=== PATIENT | female | born 1995 | race Caucasian/White ===

== ENCOUNTER 2018-12-29 23:02 | Emergency (ER) | payer OTHER ==
[2018-12-30 01:07] LABS: ABSOLUTE EOSINOPHILS # (AUTO) 0.1 10^3/uL (0.0-0.6); ABSOLUTE LYMPHOCYTES (AUTO) 2.1 10^3/uL (0.5-4.7); ABSOLUTE MONOCYTES (AUTO) 0.5 10^3/uL (0.1-1.4); ABSOLUTE NEUT (AUTO) 3.9 10^3/uL (1.7-8.2); BASOPHILS % (AUTO) 0.7 % (0-2); EOSINOPHILS % (AUTO) 1.3 % (0-6); HEMATOCRIT 41.1 % (36.0-47.0); HEMOGLOBIN 13.9 g/dL (12.0-15.5); LYMPHOCYTES % (AUTO) 31.4 % (13-45); MEAN CORPUSCULAR HEMOGLOBIN 30.3 pg (27.0-33.4); MEAN CORPUSCULAR HGB CONC 33.7 g/dL (32.0-36.0); MEAN CORPUSCULAR VOLUME 90 fl (80-97); MONOCYTES % (AUTO) 7.9 % (3-13); PLATELET COUNT 327 10^3/uL (150-450); RED BLOOD COUNT 4.57 10^6/uL (3.72-5.28); RED CELL DISTRIBUTION WIDTH 12.6 % (11.5-14.0); SEGMENTED NEUTROPHILS % (AUTO) 58.7 % (42-78); TOTAL CELLS COUNTED % (AUTO) 100 %; WHITE BLOOD COUNT 6.6 10^3/uL (4.0-10.5)
[2018-12-30 01:17] LABS: APPEARANCE,URINE CLEAR; BILIRUBIN,URINE NEGATIVE (NEGATIVE); COLOR,URINE YELLOW; GLUCOSE, URINE NEGATIVE (NEGATIVE); KETONES,URINE NEGATIVE (NEGATIVE); LEUKOCYTE ESTERASE,URINE TRACE (NEGATIVE); NITRITE,URINE NEGATIVE (NEGATIVE); PROTEIN,URINE NEGATIVE (NEGATIVE); URINE SPECIFIC GRAVITY 1.012; UROBILINOGEN,URINE NEGATIVE mg/dL (<2.0)
[2018-12-30 01:26] LABS: ALANINE AMINOTRANSFERASE 22 U/L (9-52); ALBUMIN 4.7 g/dL (3.5-5.0); ALKALINE PHOSPHATASE 36 U/L (38-126); ANION GAP 10 (5-19); ASPARTATE AMINO TRANSFERASE 16 U/L (14-36); BILIRUBIN,DIRECT 0.2 mg/dL (0.0-0.4); BILIRUBIN,TOTAL 0.6 mg/dL (0.2-1.3); BLOOD UREA NITROGEN 11 mg/dL (7-20); CALCIUM 9.8 mg/dL (8.4-10.2); CARBON DIOXIDE 26 mmol/L (22-30); CHLORIDE 106 mmol/L (98-107); GLUCOSE 103 mg/dL (75-110); POTASSIUM 4.2 mmol/L (3.6-5.0); TOTAL PROTEIN 7.7 g/dL (6.3-8.2)
[2018-12-30] MEDS ORDERED: FAMOTIDINE 20 MG TABLET PO ONE (01:38)
[2018-12-30] MEDS ORDERED: METOCLOPRAMIDE HCL ORAL SOLN 10 MG/10 ML UDCUP PO ONE (01:39)
[2018-12-30] MEDS ORDERED: LIDOCAINE 2% VISCOUS SOLN 20 ML UDCUP PO ONE (01:39)
[2018-12-30] MEDS ORDERED: SUCRALFATE 1 GM TABLET PO ONE (01:39)
[2018-12-30] MEDS ORDERED: MAG HYDROX/AL HYDROX/SIMETH SUSP 30 ML UDCUP PO ONE (01:39)
--- NOTE | 2018-12-30 01:42 | ER Document Report ---
HPI - HPI Time Seen by Provider: 12/30/18 01:33 Pain Level: 4 Notes: Patient is an otherwise healthy 23-year-old female presented to the emergency department with chief complaint of sharp stabbing upper abdominal pain. Patient reports pain started on Sunday after drinking alcohol. She reports she was seen at her [facility] and they diagnosed her with reflux and started on Prilosec. She reports this does not help her symptoms. She denies any nausea, vomiting, diarrhea or fevers. She reports that the pain is sharp and stabbing and persistent. - REPRODUCTIVE LMP: 12/03/18 Reproductive: DENIES: : Past Medical History - General Information source: Patient - Social History Smoking Status: Never Smoker Frequency of alcohol use: None Drug Abuse: None Family History: Reviewed & Not Pertinent - Medical History Medical History: Negative Surgical Hx: Negative - Immunizations Immunizations up to date: Yes Vertical Provider Document - CONSTITUTIONAL Notes: PHYSICAL EXAMINATION: GENERAL: Well-appearing, well-nourished and in no acute distress. HEAD: Atraumatic, normocephalic. EYES: Pupils equal round and reactive to light, extraocular movements intact, conjunctiva are normal. ENT: Nares patent, oropharynx clear without exudates. Moist mucous membranes. NECK: Normal range of motion, supple without lymphadenopathy LUNGS: Breath sounds clear to auscultation bilaterally and equal. No wheezes rales or rhonchi. HEART: Regular rate and rhythm without murmurs ABDOMEN: Soft, nontender, nondistended abdomen. No guarding, no rebound. No masses appreciated. Female : deferred Musculoskeletal: Normal range of motion, no pitting or edema. No cyanosis. NEUROLOGICAL: Cranial nerves grossly intact. Normal speech, normal gait. Normal sensory, motor exams PSYCH: Normal mood, normal affect. SKIN: Warm, Dry, normal turgor, no rashes or lesions noted. Course - Re-evaluation Re-evalutation: Patient appears well, nontoxic is alert, oriented and interactive. Vital signs are within normal limits. Physical examination is unremarkable. Labs are unremarkable. Likely gastritis due to the fact that the pain started immediately after drinking alcohol. Patient will be started on medications for gastritis with close follow-up with her primary care provider. Patient is agreeable to this plan. - Vital Signs Vital signs: Temp Pulse Resp BP Pulse Ox 98.1 F 96 18 136/87 H 99 07/28/19 23:10 12/29/18 23:10 12/29/18 23:10 12/29/18 23:10 12/29/18 23:10 - Laboratory Result Diagrams: 12/30/18 00:50 12/30/18 00:50 Laboratory results interpreted by me: 12/30/18 12/30/18 00:50 00:50 Alkaline Phosphatase 36 L Ur Leukocyte Esterase TRACE H Discharge - Discharge Clinical Impression: Gastritis Qualifiers: Gastritis type: unspecified gastritis Chronicity: acute Gastritis bleeding: without bleeding Qualified Code(s): K29.00 - Acute gastritis without bleeding Condition: Stable Disposition: HOME, SELF-CARE Additional Instructions: Your symptoms appear to be most consistent with stomach or upper intestinal irritation. Please begin taking famotidine 40 mg in the morning and 40 mg at night. This medicine can be purchased directly [id number]. You may also take medicine such as Pepto-Bismol or Tums to assist with your pain. Please return to emergency department immediately if you have worsening of your pain, shortness of breath, vomiting, become unable to exert yourself due to pain or difficulty breathing, you pass out, or have any pain that radiates into your arms, jaw, or back. Please also return if you have any additional symptoms that are concerning to you. The most important thing is lifestyle changes. You need to avoid smoking, sodas, tea, coffee, alcohol, spicy foods, and acidic foods such as citrus fruits, tomato based products, berries, and most fruit juices. Prescriptions: RX: Famotidine 40 mg PO BID #60 tablet Sucralfate [Carafate 1 gm Tablet] 1 gm PO ACHS #60 tablet Forms: Return to Work
[2018-12-30 02:04] VITALS: BP 145/92
== END 2018-12-30 02:03 | disposition home or self-care (01) ==
LOC: ER 23:02
DX: K29.00 Acute gastritis without bleeding (principal); R10.10 Upper abdominal pain, unspecified
CPT/HCPCS: 99284; 36415; 83690; 85025; 81025; 80053; 81001; J3490

== ENCOUNTER 2018-12-30 11:23 | Emergency (ER) | payer OTHER ==
[2018-12-30] MEDS ORDERED: MAG HYDROX/AL HYDROX/SIMETH SUSP 30 ML UDCUP PO ONE (11:39)
[2018-12-30] MEDS ORDERED: LIDOCAINE 2% VISCOUS SOLN 20 ML UDCUP PO ONE (11:39)
[2018-12-30] MEDS ORDERED: METOCLOPRAMIDE HCL ORAL SOLN 10 MG/10 ML UDCUP PO ONE (11:39)
--- NOTE | 2018-12-30 11:42 | ER Document Report ---
ED Medical Screen (RME) - General Chief Complaint: Upper Abdominal Pain Stated Complaint: STOMACH PAIN Time Seen by Provider: 12/30/18 11:39 TRAVEL OUTSIDE OF THE [place] IN LAST 30 DAYS: No - HPI Notes: 12/30/18 11:40 Patient is a 23-year-old female with no significant past medical history aside from exercise-induced asthma who presents complaining of severe epigastric abdominal pain that does not radiate. Patient states that the symptoms began about a week ago after consuming alcohol. Patient states that the symptoms became severe last night and she did have an evaluation here in the emergency department at that time. Patient states that the GI cocktail she was given yesterday did help with her symptoms, but only temporary. Patient states that she has not been able to eat or drink anything and feels dehydrated. Patient states that she does feel her heart racing. She has also had watery diarrhea. Denies drug allergies. Denies CISNEROS, fever, neck pain, URI, CP, SOB, dysuria, back pain, or rash. Pt had labs reviewed from yesterday. Neg . Will not repeat hcg at this time. I have treated and performed a rapid initial assessment of this patient. A comprehensive ED assessment and evaluation of the patient, analysis of test results and completion of medical decision making process will be conducted by additional ED providers. PHYSICAL EXAMINATION: GENERAL: Well-appearing, well-nourished and in no acute distress. A&Ox4. Answers questions appropriately. LUNGS: Breath sounds clear to auscultation bilaterally and equal. No wheezes rales or rhonchi. HEART: Regular rate and rhythm without murmurs, rubs, gallops. ABDOMEN: Soft, nondistended abdomen. No guarding, no rebound. Normal bowel sounds present. No CVA tenderness bilaterally. + epigastric tenderness (cannot elicit thorough abd exam w/o bed, however). - Related Data Allergies/Adverse Reactions: No Known Allergies Allergy (Verified 12/30/18 11:29) Past Medical History Renal/ Medical History: Denies: Hx Peritoneal Dialysis - Immunizations Immunizations up to date: Yes Physical Exam - Vital signs Vitals: Temp Pulse Resp BP Pulse Ox 97.7 F 127 H 18 149/92 H 100 12/30/18 11:30 12/30/18 11:30 12/30/18 11:30 12/30/18 11:30 12/30/18 11:30 Course - Vital Signs Vital signs: Temp Pulse Resp BP Pulse Ox 97.7 F 127 H 18 149/92 H 100 12/30/18 11:30 12/30/18 11:30 12/30/18 11:30 12/30/18 11:30 12/30/18 11:30
[2018-12-30] MEDS: NORMAL SALINE 1000 ML 1,000 ML IV PRN ×2 (11:58→14:03)
[2018-12-30 12:17] LABS: ABSOLUTE MONOCYTES (AUTO) 0.5 10^3/uL (0.1-1.4); ABSOLUTE NEUT (AUTO) 7.2 10^3/uL (1.7-8.2); BASOPHILS % (AUTO) 0.4 % (0-2); HEMATOCRIT 42.1 % (36.0-47.0); HEMOGLOBIN 14.6 g/dL (12.0-15.5); LYMPHOCYTES % (AUTO) 11.2 % (13-45); MEAN CORPUSCULAR HEMOGLOBIN 31.2 pg (27.0-33.4); MEAN CORPUSCULAR HGB CONC 34.8 g/dL (32.0-36.0); MEAN CORPUSCULAR VOLUME 90 fl (80-97); MONOCYTES % (AUTO) 6.2 % (3-13); PLATELET COUNT 339 10^3/uL (150-450); RED BLOOD COUNT 4.69 10^6/uL (3.72-5.28); RED CELL DISTRIBUTION WIDTH 12.4 % (11.5-14.0); SEGMENTED NEUTROPHILS % (AUTO) 82.2 % (42-78); TOTAL CELLS COUNTED % (AUTO) 100 %; WHITE BLOOD COUNT 8.7 10^3/uL (4.0-10.5)
[2018-12-30 12:36] LABS: APPEARANCE,URINE CLEAR; BILIRUBIN,URINE NEGATIVE (NEGATIVE); COLOR,URINE STRAW; GLUCOSE, URINE NEGATIVE (NEGATIVE); KETONES,URINE 20 mg/dL (NEGATIVE); LEUKOCYTE ESTERASE,URINE NEGATIVE (NEGATIVE); NITRITE,URINE NEGATIVE (NEGATIVE); PROTEIN,URINE NEGATIVE (NEGATIVE); URINE SPECIFIC GRAVITY 1.003; UROBILINOGEN,URINE NEGATIVE mg/dL (<2.0)
--- NOTE | 2018-12-30 12:39 | RADIOLOGY REPORT (SQ) ---
EXAM DESCRIPTION: CHEST 2 VIEWS COMPLETED DATE/TIME: 12/30/2018 12:31 pm REASON FOR STUDY: epigastric pain, palpitations COMPARISON: None. EXAM PARAMETERS: NUMBER OF VIEWS: two views TECHNIQUE: Digital Frontal and Lateral radiographic views of the chest acquired. RADIATION DOSE: NA LIMITATIONS: none FINDINGS: LUNGS AND PLEURA: No opacities, masses or pneumothorax. No pleural effusion. MEDIASTINUM AND HILAR STRUCTURES: No masses or contour abnormalities. HEART AND VASCULAR STRUCTURES: Heart normal size. No evidence for failure. BONES: No acute findings. HARDWARE: None in the chest. OTHER: No other significant finding. IMPRESSION: NO ACUTE RADIOGRAPHIC FINDING IN THE CHEST. TECHNICAL DOCUMENTATION: JOB ID: [id number] [employer]- All Rights Reserved Reading location - IP/workstation name: [email or web address]
[2018-12-30 13:31] LABS: ALANINE AMINOTRANSFERASE 25 U/L (9-52); ALBUMIN 4.4 g/dL (3.5-5.0); ALKALINE PHOSPHATASE 41 U/L (38-126); ANION GAP 12 (5-19); ASPARTATE AMINO TRANSFERASE 18 U/L (14-36); BILIRUBIN,DIRECT 0.2 mg/dL (0.0-0.4); BILIRUBIN,TOTAL 0.7 mg/dL (0.2-1.3); BLOOD UREA NITROGEN 9 mg/dL (7-20); CALCIUM 9.5 mg/dL (8.4-10.2); CARBON DIOXIDE 19 mmol/L (22-30); CHLORIDE 109 mmol/L (98-107); GLUCOSE 96 mg/dL (75-110); TOTAL PROTEIN 7.3 g/dL (6.3-8.2)
--- NOTE | 2018-12-30 13:35 | ER Document Report ---
ED General - General Chief Complaint: Upper Abdominal Pain Stated Complaint: STOMACH PAIN Time Seen by Provider: 12/30/18 11:39 Mode of Arrival: Ambulatory Information source: Patient Notes: This healthy 23-year-old female presents to the emergency department with complaints of epigastric pain that radiates into her chest for the past week. She reports she started experiencing epigastric pain December 21. She reports she had approximately 5 beers to drink that night. She woke up with increased pain the next day with vomiting. Reports she thought it was due to the drinking. The epigastric pain continued so she went to see her primary care provider on Sunday who prescribed her Prilosec. She reports the pain increased so she came to the emergency department last night. She was given a GI cocktail which helped a little bit at the time. She was discharged home. She returns this mo rn because she is increased pain. She received a GI cocktail by the provider in triage and she reports it helped even more. she denies fever reports she is nauseated and when she tries to eat. Reports last time she vomited was on Sunday. She reports one episode of diarrhea last night. Reports last menstrual period was December 03. Denies pain with void. Denies vaginal discharge. Denies history of reflux. Reports that she has a family history of gallbladder issues and reflux. TRAVEL OUTSIDE OF THE [place] IN LAST 30 DAYS: No - HPI Onset: Last week Onset/Duration: Persistent Quality of pain: Achy, Burning Severity: Severe Associated symptoms: Nausea Exacerbated by: Denies Relieved by: Denies Similar symptoms previously: Yes Recently seen / treated by doctor: Yes - Related Data Allergies/Adverse Reactions: No Known Allergies Allergy (Verified 12/30/18 11:29) Past Medical History - General Information source: Patient Last Menstrual Period: 12/03/18 - Social History Smoking Status: Never Smoker Chew tobacco use (# tins/day): No Frequency of alcohol use: Occasional Drug Abuse: None Lives with: Family Family History: Reviewed & Not Pertinent Patient has suicidal ideation: No Patient has homicidal ideation: No Pulmonary Medical History: Reports: Hx Asthma Renal/ Medical History: Denies: Hx Peritoneal Dialysis Surgical Hx: Negative - Immunizations Immunizations up to date: Yes Review of Systems - Review of Systems Notes: Review HPI for review of systems., All other systems negative Physical Exam - Vital signs Vitals: Temp Pulse Resp BP Pulse Ox 97.7 F 127 H 18 149/92 H 100 12/30/18 11:30 12/30/18 11:30 12/30/18 11:30 12/30/18 11:30 12/30/18 11:30 - Notes Notes: PHYSICAL EXAMINATION: GENERAL: Well-appearing and in no acute distress HEAD: Atraumatic, normocephalic. EYES: Pupils equal round , extraocular movements intact, sclera anicteric, c onjunctiva are normal. ENT: nares patent, . Moist mucous membranes. NECK: Normal range of motion, supple without lymphadenopathy LUNGS: CTAB and equal. No wheezes rales or rhonchi. HEART: Regular rate and rhythm without murmurs ABDOMEN: Soft, epigastric and RUQ ttp No guarding, no rebound BACK: Denies pain EXTREMITIES: Normal range of motion, NEUROLOGICAL: Cranial nerves grossly intact. PSYCH: Normal mood, normal affect. SKIN: Warm, Dry, normal turgor, no rashes or lesions noted Course - Re-evaluation Re-evalutation: 12/30/18 13:35 23-year-old female with complaints of epigastric right upper quad abdominal pain for the past week. Labs are unremarkable. She is now asking for food and drink. Will do gallbladder ultrasound. 12/30/18 12:02 12/30/18 12:45 MCV 90 fl (80-97) 12/30/18 12:02 MCH 31.2 pg (27.0-33.4) 12/30/18 12:02 MCHC 34.8 g/dL (32.0-36.0) 12/30/18 12:02 RDW 12.4 % (11.5-14.0) 12/30/18 12:02 Seg Neutrophils % 82.2 % (42-78) H 12/30/18 12:02 Lymphocytes % 11.2 % (13-45) L 12/30/18 12:02 Monocytes % 6.2 % (3-13) 12/30/18 12:02 Eosinophils % 0.0 % (0-6) 12/30/18 12:02 Basophils % 0.4 % (0-2) 12/30/18 12:02 Absolute Neutrophils 7.2 10^3/uL (1.7-8.2) 12/30/18 12:02 Absolute Lymphocytes 1.0 10^3/uL (0.5-4.7) 12/30/18 12:02 Absolute Monocytes 0.5 10^3/uL (0.1-1.4) 12/30/18 12:02 Absolute Eosinophils 0.0 10^3/uL (0.0-0.6) 12/30/18 12:02 Absolute Basophils 0.0 10^3/uL (0.0-0.2) 12/30/18 12:02 Chloride 109 mmol/L (98-107) H 12/30/18 12:45 Carbon Dioxide 19 mmol/L (22-30) L 12/30/18 12:45 Anion Gap 12 (5-19) 12/30/18 12:45 Est GFR ( Amer) > 60 (>60) 12/30/18 12:45 Est GFR (Non-Af Amer) > 60 (>60) 12/30/18 12:45 Glucose 96 mg/dL (75-110) 12/30/18 12:45 Calcium 9.5 mg/dL (8.4-10.2) 12/30/18 12:45 Total Bilirubin 0.7 mg/dL (0.2-1.3) 12/30/18 12:45 AST 18 U/L (14-36) 12/30/18 12:45 ALT 25 U/L (9-52) 12/30/18 12:45 Alkaline Phosphatase 41 U/L (38-126) 12/30/18 12:45 Total Protein 7.3 g/dL (6.3-8.2) 12/30/18 12:45 Albumin 4.4 g/dL (3.5-5.0) 12/30/18 12:45 Lipase 262.3 U/L (23-300) 12/30/18 12:45 Urine Color STRAW 12/30/18 12:02 Urine Appearance CLEAR 12/30/18 12:02 Urine pH 7.0 (5.0-9.0) 12/30/18 12:02 Ur Specific Dana 1.003 12/30/18 12:02 Urine Protein NEGATIVE mg/dL (NEGATIVE) 12/30/18 12:02 Urine Glucose (UA) NEGATIVE mg/dL (NEGATIVE) 12/30/18 12:02 Urine Ketones 20 mg/dL (NEGATIVE) H 12/30/18 12:02 Urine Blood SMALL (NEGATIVE) H 12/30/18 12:02 Urine Nitrite NEGATIVE (NEGATIVE) 12/30/18 12:02 Ur Leukocyte Esterase NEGATIVE (NEGATIVE) 12/30/18 12:02 Urine WBC (Auto) 0 /HPF 12/30/18 12:02 Urine RBC (Auto) 1 /HPF 12/30/18 12:02 12/30/18 15:26 Labs unremarkable ultrasound and chest x-ray negative. Patient reports she feels better after she received a Percocet for the pain. Will discharge patient with instructions to follow-up with GI primary care provider. Also provided with [place] for epigastric pain. She was instructed on diet. She verbalized understanding to all instructions. Chest X-Ray 12/30/18 11:39 IMPRESSION: NO ACUTE RADIOGRAPHIC FINDING IN THE CHEST. Abdomen Ultrasound 12/30/18 12:52 IMPRESSION: NORMAL RIGHT UPPER QUADRANT ULTRASOUND. 12/30/18 19:50 - Vital Signs Vital signs: Temp Pulse Resp BP Pulse Ox 98.5 F 102 H 18 129/78 H 98 12/30/18 16:27 12/30/18 16:27 12/30/18 16:27 12/30/18 16:27 12/30/18 16:27 - Laboratory Result Diagrams: 12/30/18 12:02 12/30/18 12:45 Laboratory results interpreted by me: 12/30/18 12/30/18 12/30/18 12:02 12:02 12:45 Seg Neutrophils % 82.2 H Lymphocytes % 11.2 L Chloride 109 H Carbon Dioxide 19 L Urine Ketones 20 H Urine Blood SMALL H - Diagnostic Test Radiology reviewed: Image reviewed, Reports reviewed - EKG Interpretation by Nd EKG shows normal: Sinus rhythm Rate: Tachycardia Additional EKG results interpreted by ar: 12/30/18 13:[address] elevation no T wave inversion Discharge - Discharge Clinical Impression: Epigastric abdominal pain Condition: Stable Disposition: HOME, SELF-CARE Instructions: Abdominal Pain ([facility]), Gastroenterology, Reflux Disease (GERD) ([facility]) Additional Instructions: *You have been evaluated for epigastric abdominal pain *Take your prilosec as prescribed *Small meals, avoid spicy foods *Follow up with a primary care provider within one week for referral to GI *Return to ED for worsening condition, changes, needs *Return to ED if not better in 24 hours Monitor your blood pressure. Your blood pressure was elevated today. This may be because you were anxious, in pain or because you need medication. It is important to follow up with your primary care provider for full evaluation. Forms: Elevated Blood Pressure
[2018-12-30] MEDS ORDERED: OXYCODONE-ACETAMINOPHEN 5-325 MG TABLET PO ONE (13:49)
--- NOTE | 2018-12-30 14:47 | EKG REPORT ---
SEVERITY:- ABNORMAL ECG - SINUS TACHYCARDIA BIATRIAL ABNORMALITIES : Confirmed by: Kika Weber MD 30-Dec-2018 14:46:12
--- NOTE | 2018-12-30 15:13 | RADIOLOGY REPORT (SQ) ---
EXAM DESCRIPTION: U/S ABDOMEN LIMITED W/O DOP COMPLETED DATE/TIME: 12/30/2018 3:02 pm REASON FOR STUDY: RUQ, Epigastric pain COMPARISON: None. TECHNIQUE: Dynamic and static grayscale images acquired of the abdomen and recorded on PACS. Additio nal selected color Doppler and spectral images recorded. LIMITATIONS: None. FINDINGS: PANCREAS: No masses. Visualized pancreatic duct normal caliber. LIVER: No masses. Echotexture normal. LIVER VASCULATURE: Normal directional flow of the main portal vein and hepatic veins. GALLBLADDER: No stones. Normal wall thickness. No pericholecystic fluid. ULTRASOUND-DETECTED TALLEY'S SIGN: Negative. INTRAHEPATIC DUCTS AND COMMON DUCT: CBD and intrahepatic ducts normal caliber. No filling defects. AORTA: No aneurysm. RIGHT KIDNEY: Normal size, 11.3 cm. Normal echogenicity. No solid or suspicious masses. No hydroneph rosis. No calcifications. PERITONEAL AND RIGHT PLEURAL SPACE: No ascites or effusions. OTHER: No other significant findings. IMPRESSION: NORMAL RIGHT UPPER QUADRANT ULTRASOUND. TECHNICAL DOCUMENTATION: JOB ID: [id number]- All Rights Reserved Reading location - IP/workstation name: [email or web address]
[2018-12-30] MEDS ORDERED: HYDROCODONE/ACETAMINOPHEN 5-325 MG (6 TAB/ER DISP) PO PRN (15:55)
[2018-12-30 16:33] VITALS: BP 129/78
== END 2018-12-30 16:35 | disposition home or self-care (01) ==
LOC: ER 11:23
DX: R10.13 Epigastric pain (principal); R10.10 Upper abdominal pain, unspecified; R07.9 Chest pain, unspecified; R11.2 Nausea with vomiting, unspecified; J45.909 Unspecified asthma, uncomplicated
CPT/HCPCS: 93005; 99284; 96360; 96361; 36415; 83690; 81025; 87070; 81001; 71046; 76705; 93010; J3490; J7030

== ENCOUNTER 2019-01-17 08:53 | Day surgery (SDC) | payer BC, OTHER ==
[~2019-01-17 08:53] MED LIST: PROPOFOL INJ 200 MG/20 ML VIAL IV ONE
[2019-01-17 10:04] VITALS: BP 115/65
--- NOTE | 2019-01-17 11:30 | Operative Report ---
Operative Report DATE OF SURGERY: 01/17/19 PREOPERATIVE DIAGNOSIS: Epigastric pain rule out peptic ulcer disease POSTOPERATIVE DIAGNOSIS: Gastritis/gastric erosions status post biopsy rule out Helicobacter pylori OPERATION: EGD with biopsy SURGEON: JASON CHOW ANESTHESIA: LMAC TISSUE REMOVED OR ALTERED: As noted above. COMPLICATIONS: None. ESTIMATED BLOOD LOSS: None. INTRAOPERATIVE FINDINGS: As noted above. PROCEDURE: Patient tolerated the procedure well. No immediate postprocedure complications are noted. Patient is discharged in good condition. Discharge date 01/17/2019. Discharge diet: Regular. Discharge activity: Regular. 2 to 3-week follow-up to discuss findings. Patient is instructed to call the office or proceed to the emergency room should there be any further questions. Wait on the pathology.
== END 2019-01-17 10:15 | disposition home or self-care (01) ==
LOC: END 08:53
PROVIDERS: ATTEND Internal Medicine Gastroenterology
DX: K29.50 Unspecified chronic gastritis without bleeding (principal); J45.20 Mild intermittent asthma, uncomplicated; Z79.899 Other long term (current) drug therapy; Z79.51 Long term (current) use of inhaled steroids
CPT/HCPCS: 43239; 81025; 88305 ×2; J2704; 731